=== PATIENT | female | born 1940 | race Caucasian/White ===

== ENCOUNTER 2020-04-25 08:43 | Inpatient (IN) | payer MEDICARE, OTHER ==
[2020-04-20 12:46] LABS: BASOPHILS % (AUTO) 0.8 % (0-1); EOSINOPHILS # (AUTO) 0.1 X10'3 (0-0.9); EOSINOPHILS % (AUTO) 1.2 % (0-6); LYMPHOCYTES # (AUTO) 1.7 X10'3 (1.1-4.8); LYMPHOCYTES % (AUTO) 38.8 % (21-51); MEAN CORPUSCULAR HGB CONC 33.6 g/dL (33.0-36.5); MEAN CORPUSCULAR VOLUME 95.3 FL (78-98); MONOCYTES # (AUTO) 0.3 X10'3 (0-0.9); MONOCYTES % (AUTO) 6.9 % (2-12); NEUTROPHILS # (AUTO) 2.3 X10'3 (1.8-7.7); NEUTROPHILS % (AUTO) 52.3 % (42-75); PRE OP HEMATOCRIT 40.6 % (35.0-45.0); PRE OP HEMOGLOBIN 13.6 g/dL (12.0-16.0); PRE OP PLATELET COUNT 219 X10'3 (140-440); RED BLOOD COUNT 4.26 X10'6 (4.20-5.60); RED CELL DISTRIBUTION WIDTH 13.7 % (11.5-14.5)
[2020-04-20 13:01] LABS: PRE OP PROTIME 10.2 SECONDS (9.0-12.0)
[2020-04-20 13:03] LABS: ALBUMIN 3.5 G/DL (3.4-5.0); ALBUMIN/GLOBULIN RATIO 1.1 (1.1-1.5); ALKALINE PHOSPHATASE 55 IU/L (46-116); BLOOD UREA NITROGEN 25 MG/DL (7-18); BUN/CREATININE RATIO 27.8 (6.6-38.0); CALCIUM 8.5 MG/DL (8.5-10.1); CHLORIDE 110 MMOL/L (99-107); PRE OP ALT 12 U/L (30-65); PRE OP ANION GAP 10 (8-16); PRE OP AST 13 U/L (10-37); PRE OP BILIRUB, TOTAL 0.3 MG/DL (0.0-1.0); PRE OP GLUCOSE 86 MG/DL (70-104); PRE OP POTASSIUM 3.7 MMOL/L (3.4-5.1); PRE OP SODIUM 141 MMOL/L (135-145); TOTAL CARBON DIOXIDE 20.6 MMOL/L (24-32); TOTAL PROTEIN 6.6 G/DL (6.4-8.2); eGFR 61 ML/MIN
[~2020-04-25] VITALS: Ht 144.8 cm; Wt 79.8 kg
[2020-04-25] VITALS (16 sets, daily range): BP systolic 92–148; BP diastolic 56–99
[~2020-04-25 08:43] MED LIST: ALEN70TA37 PO; AMLO5TAB16 PO; LOSA50TA64 PO; ceFAZolin 2gm in dextrose, iso 50 ML IV ONE; famotidine 20mg tablet PO ONE; ringers solution, lacted 1,000 ML IV SCH; tranexamic acid 1gm/0.7% sal. 100 ML IV ONE; vancomycin 1,500 MG in NS 300ml IV soln IV ONE
[2020-04-25] MEDS ORDERED: ceFAZolin 1000mg inj ONE (10:28)
[2020-04-25] MEDS ORDERED: fentaNYL/PF 50MCG/1 ML 2ML syringe ONE (10:43)
[2020-04-25] MEDS ORDERED: MIDAZolam 5mg/5ml vial ONE (10:43)
[2020-04-25] MEDS ORDERED: albumin (Human) 5% 250ml 250 ML IV ONE ×2 (12:39)
[2020-04-25] MEDS ORDERED: ePHEDrine 50MG/ML INJ. ONE (13:24)
[2020-04-25] MEDS ORDERED: propofol inj 40 ML IV ONE (13:24)
--- NOTE | 2020-04-25 13:33 | NUR ---
ARRIVED IN PACU VIA BED FROM OR WITH DR MARIA IN ATTENDANCE. REPORT RECEIVED. VS STABLE. PT SLEEPY BUT RESPONDS EASILY WHEN SPOKEN TOO. ANILA VÁSQUEZ APPLIED.
[2020-04-25] MEDS ORDERED: ringers solution, lacted 1,000 ML IV SCH (13:37)
[2020-04-25] MEDS ORDERED: ondansetron/PF 4mg/2ml inj IV PRN ×2 (13:40→13:45)
[2020-04-25] MEDS ORDERED: HYDROmorphone inj. 0.5 MG/0.5 ML DISP.SYRIN IV PRN ×3 (13:40→13:45)
[2020-04-25] MEDS ORDERED: HYDROcodone/acetaminophen 10/325mg tab PO PRN (13:45)
[2020-04-25] MEDS ORDERED: bisacodyl 10mg suppository rectal RC PRN (13:45)
[2020-04-25] MEDS ORDERED: acetaminophen 325mg tablet PO PRN (13:45)
[2020-04-25] MEDS ORDERED: magnesium hydroxide 30ml (MOM) UD suspension PO PRN (13:45)
[2020-04-25] MEDS ORDERED: diphenhydrAMINE 25mg capsule PO PRN ×2 (13:45)
--- NOTE | 2020-04-25 14:03 | NUR ---
SLEEPING IN INTERVALS.
[2020-04-25] MEDS: morphine 2 MG/ML inj. syringe IV PRN ×4 (14:17→15:02)
--- NOTE | 2020-04-25 14:33 | NUR ---
SMALL AMT DRAINAGE NOTED ON HIP DSG. PROBABLY ABOUT SIZE 50 CENT PIECE. PRESSUE DSG APPLIED. MED ORDERED FOR HIP PAIN. MOVING AND WIGGLING R TOES AND FEET, NOT L YET
--- NOTE | 2020-04-25 15:06 | NUR ---
MORE COM. NO FURTHER DRAINAGE ON BANDAGE. WAITING TO GIVE REPORT AND TRANSPORT TO 4028
--- NOTE | 2020-04-25 15:13 | NUR ---
TO [facility]. MAYO IN ROOM TO ACCEPT PT. NO FURTHER DRAINAGE ON L HIP DSG
[2020-04-25] MEDS: ceFAZolin 1GM/D5W- ADD-VANTAGE 50 ML IV SCH ×2 (16:27→23:57)
[2020-04-25] MEDS: potassium Cl 20mEq in NS 1,000 ML IV SCH (16:27)
[2020-04-25] MEDS: HYDROcodone/acetaminophen 10/325mg tab PO PRN (17:31)
[2020-04-25] MEDS: aspirin 81mg tablet.DR PO SCH (17:31)
[2020-04-25] MEDS ORDERED: vancomycin/NS 1 GM ADD-VANTAGE 250 ML IV SCH (20:00)
[2020-04-25] MEDS: sennosides 8.6mg tablet PO SCH (20:58)
[2020-04-25] MEDS: losartan 50mg tablet PO SCH (20:58)
[2020-04-25] MEDS: amLODIPine 5mg tablet PO SCH (20:58)
[2020-04-26] MEDS: HYDROcodone/acetaminophen 10/325mg tab PO PRN ×3 (00:01→20:47)
[2020-04-26 02:00] VITALS: BP 91/49
[2020-04-26 06:00] VITALS: BP 96/58
--- NOTE | 2020-04-26 06:13 | NUR ---
REPORT GIVEN TO NATALY ESTRADA.
[2020-04-26 06:49] LABS: BASOPHILS % (AUTO) 0.2 % (0-1); EOSINOPHILS % (AUTO) 0.2 % (0-6); HEMATOCRIT 26.5 % (35.0-45.0); LYMPHOCYTES # (AUTO) 1.2 X10'3 (1.1-4.8); LYMPHOCYTES % (AUTO) 22.6 % (21-51); MEAN CORPUSCULAR HEMOGLOBIN 32.3 PG (27.0-31.0); MEAN PLATELET VOLUME 8.1 FL (7.4-10.4); MONOCYTES # (AUTO) 0.6 X10'3 (0-0.9); MONOCYTES % (AUTO) 10.9 % (2-12); NEUTROPHILS # (AUTO) 3.5 X10'3 (1.8-7.7); NEUTROPHILS % (AUTO) 66.1 % (42-75); PLATELET COUNT 140 X10'3 (140-440); RED BLOOD COUNT 2.79 X10'6 (4.20-5.60); RED CELL DISTRIBUTION WIDTH 13.2 % (11.5-14.5); WHITE BLOOD COUNT 5.3 X10'3 (4.5-11.0)
[2020-04-26 07:12] LABS: ALANINE AMINOTRANSFERASE 11 U/L (12-78); ALBUMIN 2.6 G/DL (3.4-5.0); ALBUMIN/GLOBULIN RATIO 1.4 (1.1-1.5); ALKALINE PHOSPHATASE 28 IU/L (46-116); ANION GAP 8 (8-16); ASPARTATE AMINO TRANSFERASE 19 U/L (10-37); BILIRUBIN,TOTAL 0.6 MG/DL (0.1-1.0); BLOOD UREA NITROGEN 12 MG/DL (7-18); BUN/CREATININE RATIO 16.7 (6.6-38.0); CALCIUM 7.6 MG/DL (8.5-10.1); CHLORIDE 109 MMOL/L (99-107); CREATININE 0.72 MG/DL (0.40-0.90); GLUCOSE 96 MG/DL (70-104); POTASSIUM 4.3 MMOL/L (3.5-5.1); SODIUM 139 MMOL/L (135-145); TOTAL CARBON DIOXIDE 21.6 MMOL/L (24-32); TOTAL PROTEIN 4.5 G/DL (6.4-8.2); eGFR 79 ML/MIN
[2020-04-26 10:00] VITALS: BP 105/56
--- NOTE | 2020-04-26 10:01 | NUR ---
DM consult: Pt with A1c 6.5%, DM education not warranted at this time. Will continue to follow. Addendum: 04/26/20 at [address] Amended: Links added. Addendum: 04/26/20 at [address] PLEASE DISREGARD. WRONG PATIENT
[2020-04-26] MEDS: aspirin 81mg tablet.DR PO SCH ×2 (10:30→18:20)
[2020-04-26] MEDS: potassium Cl 20mEq in NS 1,000 ML IV SCH ×3 (10:30→23:06)
[2020-04-26 14:00] VITALS: BP 107/46
--- NOTE | 2020-04-26 14:34 | NUR ---
Pt s/p left [facility]. Pt currently on a regular diet documented with 100% PO intake. D/w dietary to send double eggs q breakfast and double protein BIDLD for satiety and increased protein needs. Will continue to follow. Addendum: 04/26/20 at [address] Amended: Links added.
[2020-04-26 18:00] VITALS: BP 108/53
[2020-04-26] MEDS: amLODIPine 5mg tablet PO SCH (20:46)
[2020-04-26] MEDS: losartan 50mg tablet PO SCH (20:47)
[2020-04-26] MEDS: sennosides 8.6mg tablet PO SCH (20:47)
[2020-04-26 22:00] VITALS: BP 115/61
[2020-04-27] MEDS: HYDROcodone/acetaminophen 10/325mg tab PO PRN ×2 (03:47→13:17)
[2020-04-27 06:10] VITALS: BP 113/63
[2020-04-27 06:12] LABS: BASOPHILS % (AUTO) 0.2 % (0-1); EOSINOPHILS % (AUTO) 0.4 % (0-6); HEMOGLOBIN 8.8 g/dl (12.0-16.0); LYMPHOCYTES # (AUTO) 1.1 X10'3 (1.1-4.8); LYMPHOCYTES % (AUTO) 13.7 % (21-51); MEAN CORPUSCULAR HEMOGLOBIN 32.3 PG (27.0-31.0); MEAN CORPUSCULAR HGB CONC 33.9 g/dL (33.0-36.5); MEAN CORPUSCULAR VOLUME 95.1 FL (78-98); MEAN PLATELET VOLUME 8.6 FL (7.4-10.4); MONOCYTES # (AUTO) 0.9 X10'3 (0-0.9); MONOCYTES % (AUTO) 11.5 % (2-12); NEUTROPHILS # (AUTO) 5.9 X10'3 (1.8-7.7); NEUTROPHILS % (AUTO) 74.2 % (42-75); PLATELET COUNT 139 X10'3 (140-440); RED BLOOD COUNT 2.74 X10'6 (4.20-5.60); RED CELL DISTRIBUTION WIDTH 13.7 % (11.5-14.5)
--- NOTE | 2020-04-27 06:27 | NUR ---
REPORT GIVEN TO NATALY KOWALSKI.
[2020-04-27 06:28] LABS: ALANINE AMINOTRANSFERASE 17 U/L (12-78); ALBUMIN 2.3 G/DL (3.4-5.0); ALKALINE PHOSPHATASE 28 IU/L (46-116); ANION GAP 8 (8-16); ASPARTATE AMINO TRANSFERASE 23 U/L (10-37); BILIRUBIN,TOTAL 0.5 MG/DL (0.1-1.0); BLOOD UREA NITROGEN 17 MG/DL (7-18); BUN/CREATININE RATIO 28.3 (6.6-38.0); CALCIUM 8.1 MG/DL (8.5-10.1); CHLORIDE 109 MMOL/L (99-107); GLUCOSE 102 MG/DL (70-104); POTASSIUM 4.3 MMOL/L (3.5-5.1); SODIUM 137 MMOL/L (135-145); TOTAL CARBON DIOXIDE 20.4 MMOL/L (24-32); TOTAL PROTEIN 4.6 G/DL (6.4-8.2); eGFR > 90 ML/MIN
--- NOTE | 2020-04-27 06:30 | NUR ---
Patient in room [facility]. I have received report from Shyanne INGRAM and had the opportunity to ask questions and assume patient care.
[2020-04-27] MEDS: aspirin 81mg tablet.DR PO SCH (09:03)
[2020-04-27] MEDS ORDERED: HYDR-4353 PO (09:54)
[2020-04-27] MEDS ORDERED: ASPI-1071 PO (09:54)
[2020-04-27] MEDS ORDERED: WALKERFR (09:55)
[2020-04-27 10:00] VITALS: BP 102/60
--- NOTE | 2020-04-27 11:50 | NUR ---
Student documentation: I have reviewed all interventions, assessments performed and documented by Nestor Hodge. Student Medication Administration: For this medication-pass time frame, all medication were reviewed, dispensed, administered and documented per hospital policy by Nestor Hodge.
--- NOTE | 2020-04-27 14:52 | NUR ---
Student documentation: I have reviewed all interventions, assessments performed and documented by Peter KAPLAN for [facility]. Student Medication Administration: All medication-pass' in the time frame from 1200- 1800, all medications were reviewed, dispensed, administered and documented per hospital policy by Peter KAPLAN from [facility].
--- NOTE | 2020-04-27 15:50 | NUR ---
Patient discharged at this time and she was taught all of her incisional care instructions and grooming care. She had a plat-form walker delivered and a prescription for norco given to her. Patient was taken to private vehicle in .
--- NOTE | 2020-04-28 13:37 | NUR ---
Case Management DC follow up: Spoke with pt via telephone. Status post: LTHA. reports:"doing okay" pt daughter stays w/pt. pt reports [facility]HS/nurse came to home and reinforced dressing. ASUNCION dressing, leaking, dressing is CDI w/small amount of leaking. pt denies s/s infection to surg site. denies swelling, redness warmth to both R & L legs. Denies: acute/continuous cp, emergent SOB, acute general pain, resp distress, N/V, vertigo, sycope episodes, MONTANEZ blurry vision, abd pain/distension, diarrhea, constipation, bladder pain, dysuria, polyuria, hematuria, retention, urgency, unexplained bleeding/bruising,fever. Verbalizes understanding of s/s that would warrant 05-20/ER visit for evaluation. Verbalizes understanding of Rx, why prescribed, resumes current Rx as ordered, denies ase r/t polypharmacy. Acknowledges need to schedule/keep follow up appts w/PCP/Dr Hobbs, will call to make appt, pt cancelled Saturday05/02/20 stating she just cannot make it, too much for her right now. Dr Mckeon appt tomorrow 04/29/20, will address ASUNCION dressing issues, see if can be DC'd. L side platform walker delivered to pt home, pt states she uses old one because it just works better, easier to use. Verbalizes compliance w/DC aftercare. Needs met, questions answered at DC, no further questions r/t post status DC at this time.
== END 2020-04-27 15:50 | disposition home or self-care (01) | DRG 470 ==
LOC: PAS IN 08:43 → UNDOADMIN 08:43 → EDSTATUS 11:00 → PAS IN 13:41 → ORTHO 4S 15:20 → PAS IN 15:20
PROVIDERS: ADMIT Orthopaedic Surgery; ATTEND Orthopaedic Surgery
PROC: 0SRB0JZ Replacement of Left Hip Joint with Synthetic Substitute, Open Approach (ICD-10-PCS; principal; 2020-04-25 10:46)
DX: M16.12 Unilateral primary osteoarthritis, left hip (principal); D62 Acute posthemorrhagic anemia; I10 Essential (primary) hypertension; Z20.828 Contact with and (suspected) exposure to other viral communicable diseases
CPT/HCPCS: 36415; 80053; 82948; 85025; 85610; 85730; 86885; 86900; 86901; 86920; 87081; 87635; 97110; 97161; 97530; A4615; A6402; A7000; C1758; C1776; G0378; J0690; J2250; J2270; J2405; J2704; J3010; J3370; J3480; J7030; J7040; J7120; P9045

== ENCOUNTER 2022-11-19 12:03 | Emergency (ER) | payer MEDICARE, OTHER ==
[~2022-11-19] VITALS: Ht 152.4 cm; Wt 61.4 kg
[~2022-11-19 12:03] MED LIST changes: +AMLO5TAB PO; -AMLO5TAB16 PO; -ceFAZolin 2gm in dextrose, iso 50 ML IV ONE; -famotidine 20mg tablet PO ONE; -ringers solution, lacted 1,000 ML IV SCH; -tranexamic acid 1gm/0.7% sal. 100 ML IV ONE; -vancomycin 1,500 MG in NS 300ml IV soln IV ONE
[2022-11-19 12:08] VITALS: BP 156/82
--- NOTE | 2022-11-19 12:18 | NUR ---
SBAR TO DR GONZÁLES VERBAL ORDERS FOR CT HEAD.
== END 2022-11-19 17:16 | disposition home or self-care (01) ==
LOC: ER 12:04
DX: Z04.3 Encounter for examination and observation following other accident (principal); S09.90XA Unspecified injury of head, initial encounter; I10 Essential (primary) hypertension; W17.89XA Other fall from one level to another, initial encounter; Y93.89 Activity, other specified; Y92.89 Other specified places as the place of occurrence of the external cause; Y99.8 Other external cause status
CPT/HCPCS: 70450; 99284